=== PATIENT | female | born 1995 | race Caucasian/White ===

== ENCOUNTER 2023-12-22 18:46 | Emergency (ER) | payer MEDICAID, SELFPAY ==
[2023-12-22 18:47] VITALS: BP 131/78; PULSE 97; RESP 16; TEMP 36.2; O2SAT 100; BMI 35.2
--- NOTE | 2023-12-22 19:22 | EX.ED.DYSGE1 ---
HPI <PITER Matute - Last Filed: 12/22/23 21:23> History of Present Illness Chief Complaint: Edema Narrative Narrative: 28-year-old female had a on 12/20/2023 and was discharged today from [place] at noon. She states both legs were very swollen at discharge but when she got home they started to feel numb and tingly. She was able to ambulate. She did have leg swelling throughout late but did not have any blood pressure issues. She states after sitting in the ER with her legs propped up in the bed the swelling has significantly gone down and now the tingling is only in her toes. PFSH <PITER Matute - Last Filed: 12/22/23 21:23> [facility] Home Medications No Known/Unobtainable [No Known Home Medications] 10/22/15 [History Last Taken Unknown] Allergy/AdvReac Type Severity Reaction Status Date / Time No Known Allergies Allergy Verified 12/22/23 18:50 Surgical History (Updated 12/22/23 @ 19:29 by Eloisa Cazares) Previous section Social History (System 08/31/21 @ 13:33 by Tyrell Granados) Smoking Status: Current every day smoker tobacco type: e-cigarettes ROS <PITER Matute - Last Filed: 12/22/23 21:23> ROS ED ROS Narrative Constitutional: Negative for fever, chills, malaise. CVS: Negative for chest pain. Respiratory: Negative for shortness of breath. Neuro: Negative for headache, motor/sensory dysfunction. Skin: Negative for rash, abscess, or wound. Musc: Negative for joint pain, swelling, trauma. Heme: Negative for easy bruising, bleeding, lymphadenopathy. EXAM <PITER Matute - Last Filed: 12/22/23 21:23> Physical Exam Narrative Exam Narrative: CONST: Patient sitting in no acute distress. EYES: Normal inspection. NECK: Normal inspection. RESP: No respiratory distress, CTAB. CVS: Regular rate and rhythm, no murmur, no gallop. ABD: Soft and nontender, Steri-Strips on incision intact with no drainage or erythema. SKIN: Color normal, no rash, warm, dry, intact. EXTREMITIES: 2+ pitting edema both ankles, symmetric, no skin changes, no calf tenderness. Full ROM all joints, 5/5 strength in bilateral hip flexion and DF/PF, normal sensation to light touch. NEURO: Alert and answering questions appropriately. PSYCH: Normal affect. Const Vital Signs: 12/22/23 18:47 12/22/23 19:27 12/22/23 19:29 Temperature 97.1 F L Temperature Source Temporal Pulse Rate 97 84 Respiratory Rate 16 16 Respiratory Effort Normal Respiratory Pattern Normal Blood Pressure 131/78 H 123/49 H Blood Pressure Mean 95 73 Pulse Ox 100 99 Oxygen Delivery Method Room Air Room Air 12/22/23 21:00 12/22/23 21:09 Temperature 97.8 F Temperature Source Pulse Rate 85 89 Respiratory Rate 16 16 Respiratory Effort Respiratory Pattern Blood Pressure 113/51 L 113/59 L Blood Pressure Mean 71 77 Pulse Ox 99 100 Oxygen Delivery Method Room Air <Dr. Brandy Trammell DO - Last Filed: 12/28/23 08:18> Physical Exam Const Vital Signs: 12/22/23 18:47 12/22/23 19:27 12/22/23 19:29 Temperature 97.1 F L Temperature Source Temporal Pulse Rate 97 84 Respiratory Rate 16 16 Respiratory Effort Normal Respiratory Pattern Normal Blood Pressure 131/78 H 123/49 H Blood Pressure Mean 95 73 Pulse Ox 100 99 Oxygen Delivery Method Room Air Room Air 12/22/23 21:00 12/22/23 21:09 Temperature 97.8 F Temperature Source Pulse Rate 85 89 Respiratory Rate 16 16 Respiratory Effort Respiratory Pattern Blood Pressure 113/51 L 113/59 L Blood Pressure Mean 71 77 Pulse Ox 99 100 Oxygen Delivery Method Room Air [facility] <PITER Matute - Last Filed: 12/22/23 21:23> [facility] Narrative Medical decision making narrative: Patient is 2 days status post delivery presenting with bilateral leg swelling and tingling. She appears well and nontoxic. Vital signs are normal. Blood pressure 131/78. She has 2+ pitting edema both ankles. She states she has had this chronically and they were more swollen earlier but improved after elevating in the ED. She has normal cardiopulmonary exam and no respiratory complaints. White count is 11.3, hemoglobin 10.6. Normal BUN and creatinine. There is mild elevation of liver enzymes ALT and alk phos. Urine has a small amount of protein however does have blood and epithelial cells as well. Her blood pressures here have remained stable and are 110?130 over 80s. She sees Tresa Rajan at [place] AUDIT CONTROL CLERK. I spoke with the on-call package car driver who advised she can follow-up in the office and they will recheck blood work. I advised patient to elevate her legs and wear compression stockings and she was discharged in stable condition. Consults: AUDIT CONTROL CLERK Differential: Peripheral edema, preeclampsia, renal or liver issues Lab Data Attestation: I reviewed the patient's lab results. Labs: Laboratory Results - last 24 hr 12/22/23 12/22/23 20:02 20:09 WBC 11.3 H RBC 3.37 L Hgb 10.6 L Hct 32.1 L MCV 95.3 MCH 31.5 MCHC 33.0 RDW Std Deviation 45.4 H RDW Coeff of Gayle 13.2 Plt Count 317 MPV 10.7 Immature Gran % (Auto) 3.800 H Neut % (Auto) 63.9 Lymph % (Auto) 21.2 [place] % (Auto) 9.5 Eos % (Auto) 0.8 Baso % (Auto) 0.8 Absolute Neuts (auto) 7.2 Absolute Lymphs (auto) 2.39 Nucleated RBC % 0 Sodium 142 Potassium 3.5 Chloride 109 H Carbon Dioxide 27.0 Anion Gap 6 BUN 10 Creatinine 0.63 Estim Creat Clear Calc 129.95 Est GFR (MDRD) Af Amer 143 Est GFR (MDRD) Non-Af 118 BUN/Creatinine Ratio 15.9 Glucose 88 Calcium 9.2 Total Bilirubin 0.30 AST 38 H ALT 61 H Alkaline Phosphatase 154 H Total Protein 6.5 Albumin 2.5 L Globulin 4.0 Albumin/Globulin Ratio 0.6 L Urine Color Yellow Urine Clarity Clear Urine pH 7.0 Ur Specific [place] 1.010 Urine Protein 30 H Urine Glucose (UA) Normal Urine Ketones Negative Urine Occult Blood 250 H Urine Nitrite Negative Urine Bilirubin Negative Urine Urobilinogen Normal Ur Leukocyte Esterase 25 H Urine RBC 50-100 SEEN Urine WBC 0-5 SEEN Ur Squamous Epith Cells 5-10 SEEN Urine Bacteria 0 SEEN Urine Mucus 0 SEEN <Dr. Brandy Trammell, DO - Last Filed: 12/28/23 08:18> MDM MDM Narrative Medical decision making narrative: Patient is 2 days status post delivery presenting with bilateral leg swelling and tingling. She appears well and nontoxic. Vital signs are normal. Blood pressure 131/78. She has 2+ pitting edema both ankles. She states she has had this chronically and they were more swollen earlier but improved after elevating in the ED. She has normal cardiopulmonary exam and no respiratory complaints. White count is 11.3, hemoglobin 10.6. Normal BUN and creatinine. There is mild elevation of liver enzymes ALT and alk phos. Urine has a small amount of protein however does have blood and epithelial cells as well. Her blood pressures here have remained stable and are 110?130 over 80s. She sees Tresa Rajan at [place] AUDIT CONTROL CLERK. I spoke with the on-call package car driver who advised she can follow-up in the office and they will recheck blood work. I advised patient to elevate her legs and wear compression stockings and she was discharged in stable condition. Consults: AUDIT CONTROL CLERK Differential: Peripheral edema, preeclampsia, renal or liver issues I have personally performed a face to face assessment of the patient and have reviewed the MARILUZ Note. I performed a substantive portion of the visit including all aspects of the following. My jackson findings include: History is Patient is a 28-year-old female G1, P1 presenting 2 days status post . She was discharged from [facility] today. She notes that she had leg swelling throughout the latter part of her but when she got home today it seemed worse and she was developing paresthesias of her feet bilaterally. She denies any prior history of high blood pressures or preeclampsia/eclampsia. She states that she told her AUDIT CONTROL CLERK about the leg swelling prior to her discharge today and they were not concerned. She came in for further evaluation at the recommendation of on-call package car driver due to the progression of her symptoms. She denies any headache or vision changes. While in the emergency room elevating her leg in the bed has improved her swelling. She denies any shortness of breath or difficulty breathing. Of the low suspicion for DVT and I do not think she requires a venous duplex at this time. Screening labs are obtained for preeclampsia given her presentation however her blood pressure is only mildly elevated initially (131/78) but completely normal at time of discharge. She is a very mild transaminitis and urinalysis is contaminated does show some minor protein. Case is discussed with the patient's AUDIT CONTROL CLERK who actually saw her earlier today and is comfortable with outpatient follow-up. Does not think she requires further monitoring or readmission. Patient is agreeable this plan of care. Patient given reassurance and counseled on third spacing/dependent edema as well as importance of using compression stockings and elevating her legs. Other additions or changes: [None] Lab Data Labs: Laboratory Results - last 24 hr 12/22/23 12/22/23 20:02 20:09 WBC 11.3 H RBC 3.37 L Hgb 10.6 L Hct 32.1 L MCV 95.3 MCH 31.5 MCHC 33.0 RDW Std Deviation 45.4 H RDW Coeff of Gayle 13.2 Plt Count 317 MPV 10.7 Immature Gran % (Auto) 3.800 H Neut % (Auto) 63.9 Lymph % (Auto) 21.2 [place] % (Auto) 9.5 Eos % (Auto) 0.8 Baso % (Auto) 0.8 Absolute Neuts (auto) 7.2 Absolute Lymphs (auto) 2.39 Nucleated RBC % 0 Sodium 142 Potassium 3.5 Chloride 109 H Carbon Dioxide 27.0 Anion Gap 6 BUN 10 Creatinine 0.63 Estim Creat Clear Calc 129.95 Est GFR (MDRD) Af Amer 143 Est GFR (MDRD) Non-Af 118 BUN/Creatinine Ratio 15.9 Glucose 88 Calcium 9.2 Total Bilirubin 0.30 AST 38 H ALT 61 H Alkaline Phosphatase 154 H Total Protein 6.5 Albumin 2.5 L Globulin 4.0 Albumin/Globulin Ratio 0.6 L Urine Color Yellow Urine Clarity Clear Urine pH 7.0 Ur Specific [place] 1.010 Urine Protein 30 H Urine Glucose (UA) Normal Urine Ketones Negative Urine Occult Blood 250 H Urine Nitrite Negative Urine Bilirubin Negative Urine Urobilinogen Normal Ur Leukocyte Esterase 25 H Urine RBC 50-100 SEEN Urine WBC 0-5 SEEN Ur Squamous Epith Cells 5-10 SEEN Urine Bacteria 0 SEEN Urine Mucus 0 SEEN Discharge Plan Triage Chief Complaint: Edema ED Midlevel Provider: Concepción Silva ED Provider: Brandy Trammell Dx/Rx/DC Orders Clinical Impression: Bilateral edema of lower extremity, complication, Elevated liver enzymes Instructions: ED Peripheral Edema, Bilateral Prescriptions: No Action No Known Home Medications Primary Care Provider: PAT PONCE Referrals: PAT PONCE CRNP [Primary Care Provider] - Activity Restrictions/Additional Instructions: I recommend wearing compression stockings and elevating your legs to decrease swelling. Follow-up with your AUDIT CONTROL CLERK and we will recheck your liver enzymes. Disposition Disposition: Home, Self Care Discharge Date/Time: 12/22/23 21:13
[2023-12-22 19:27] VITALS: BP 123/49; PULSE 84; RESP 16; O2SAT 99
[2023-12-22 20:15] LABS: Bacteria 0 SEEN /hpf (None Seen); Mucous, Urine 0 SEEN /hpf (<or=2+)
[2023-12-22 20:17] LABS: Absolute Lymphocyte Count 2.39 X10^3/uL (0.83-4.51); Absolute Neutrophil Count 7.2 X10^3/uL (2.0-7.7); Basophil# 0.09 X10^3/uL; Basophil% 0.8 % (0-1); Eosinophil# 0.09 X10^3/uL; Eosinophils% 0.8 % (0-5); Hematocrit 32.1 % (37-47); Hemoglobin 10.6 g/dL (12.0-15.0); Lymphocyte # 2.39 X10^3/ul (0.83-4.51); Lymphocyte % 21.2 % (19-41); Mean Corpuscular Hgb 31.5 pg (27.0-32.0); Mean Corpuscular Volume 95.3 fL (81-99); Mean Platelet Vol. 10.7 fl (6.2-12.0); Monocyte# 1.07 X10^3/uL; Monocyte% 9.5 % (0-10); NRBC Flagged by Analyzer 0 % (0-5); Neutrophil # 7.19 X10^3/uL (2.7-7.7); Neutrophil % 63.9 % (47-70); Platelet Count 317 K/mm3 (150-450); RBC Distribution Width CV 13.2 % (11.6-14.6); RBC Distribution Width SD 45.4 fl (35.1-43.9); Red Blood Count 3.37 M/mm3 (4.2-5.4); White Blood Count 11.3 K/mm3 (4.4-11.0)
[2023-12-22 20:18] LABS: Color, Urine Yellow (Yellow); Glucose, Dipstick Normal (Normal); Ketone-Dipstick Negative (Negative); Leukocyte Esterase-Dipstick 25 /ul (Negative); Nitrite-Dipstick Negative (Negative); Occult Blood-Urine 250 /ul (Negative); Protein-Dipstick 30 mg/dl (Negative); Urine Bilirubin Dipstick Negative (Negative); Urine Clarity Clear (Clear); Urine Urobilinogen Normal (Normal)
[2023-12-22 20:31] LABS: Red Blood Cells-Urine 50-100 SEEN /hpf (0-5)
[2023-12-22 20:32] LABS: Squamous Epithelial Cells - UA 5-10 SEEN /hpf (5-10); White Blood Cells 0-5 SEEN /hpf (0-5)
[2023-12-22 20:34] LABS: ALB/GLOB Ratio 0.6 RATIO (0.9-2.4); AST(SGOT) 38 U/L (15-37); Alanine Aminotransfer ALT/SGPT 61 U/L (13-56); Albumin, Serum 2.5 g/dL (3.2-5.0); Alkaline Phosphatase 154 U/L (45-117); Anion Gap 6 (5-15); BUN 10 mg/dL (7-18); BUN/Creat Ratio 15.9 RATIO (10-20); Calcium,Total 9.2 mg/dL (8.5-10.1); Chloride 109 mmol/L (98-107); Creatinine, Serum 0.63 mg/dL (0.55-1.02); EST Glomerular Filtration Rate 118 mL/min (>60); Est Glom Filt Rate - Afr Amer 143 mL/min (>60); Estimated Creatinine Clearance 129.95 ml/min; Glucose 88 mg/dL (74-106); Potassium 3.5 mmol/L (3.5-5.1); Protein, Total 6.5 g/dL (6.4-8.2); Sodium Level 142 mmol/L (136-145)
[2023-12-22 21:00] VITALS: BP 113/51; PULSE 85; RESP 16; O2SAT 99
[2023-12-22 21:09] VITALS: BP 113/59; PULSE 89; RESP 16; TEMP 36.6; O2SAT 100
== END 2023-12-22 21:13 | disposition home or self-care (01) ==
PROVIDERS: Physician Assistant; Emergency Provider Emergency Medicine; PCP Nurse Practitioner Adult Health; Visit Provider Emergency Medicine
DX: O99.893 Other specified diseases and conditions complicating puerperium (principal); R60.0 Localized edema; R74.8 Abnormal levels of other serum enzymes; F17.290 Nicotine dependence, other tobacco product, uncomplicated; M79.89 Other specified soft tissue disorders; R20.2 Paresthesia of skin; R20.0 Anesthesia of skin; O99.335 Smoking (tobacco) complicating the puerperium
CPT/HCPCS: 80053; 81001; 85025; 99282; A4216